=== PATIENT | male | born 1940 | race Caucasian/White ===

== ENCOUNTER 2019-01-15 08:07 | Inpatient (IN) | payer MEDICARE, OTHER ==
[2019-01-15] VITALS (17 sets, daily range): BP systolic 150–209; BP diastolic 76–115; BMI 23.0
[~2019-01-15] VITALS: Ht 180.3 cm; Wt 74.4 kg
[~2019-01-15 08:07] MED LIST: ALTACE5 MG PO; BAYER CHEWABLE81 MG PO; FLOMAX0.4 MG PO; FLUTICASONE PRO16 GM NASAL; GLUCOPHAGE500 MG PO; GLUCOTROL 5 MG T5 MG PO; HEMOCYTE PLUS C1 CAP PO; K-DUR20 MEQ PO; KLONOPIN0.5 MG PO; LASIX20 MG PO; LOPRESSOR25 MG PO; NAPROSYN500 MG PO; PLAVIX75 MG PO; PRESERVISION AR1 CAP PO; ULTRAM50 MG PO
[2019-01-15] MEDS ORDERED: COZAAR100 MG PO (08:15)
[2019-01-15] MEDS ORDERED: ULTRAM50 MG PO (08:16)
[2019-01-15] MEDS ORDERED: METOPROLOL TART25 MG PO (08:17)
[2019-01-15 08:47] LABS: APPEARANCE CLEAR (CLEAR); BILIRUBIN NEGATIVE (NEGATIVE); COLOR YELLOW (YELLOW); GLUCOSE NEGATIVE (NEGATIVE); KETONE SMALL mg/dL (NEGATIVE); NITRITE NEGATIVE (NEGATIVE); PROTEIN NEGATIVE (NEGATIVE); UROBILINOGEN NORMAL (NORMAL)
[2019-01-15 08:52] LABS: BASOPHILS 0.3 % (0-2); EOSINOPHILS 1.6 % (0-7); HEMOGLOBIN 14.4 g/dL (13.5-17.5); IMMATURE GRANULOCYTES 0.1 % (0-5); LYMPHOCYTES 18.8 % (15-50); MCH 31.5 pg (26.0-34.0); MCHC 34.3 g/dL (31.0-37.0); MCV 91.9 fL (80.0-100.0); MEAN PLATELET VOLUME 10.4 fL (7.4-10.4); MONOCYTES 6.4 % (2-11); NEUTROPHILS 72.8 % (40-80); RBC 4.57 10x6/uL (4.20-6.10); WBC 7.7 10x3/uL (4.8-10.8)
[2019-01-15 08:55] LABS: PLATELET COUNT 206 10x3/uL (130-400)
[2019-01-15 08:59] LABS: ALBUMIN 3.7 g/dL (3.4-5.0); ANION GAP 14.9 mmol/L (8-16); BILIRUBIN - TOTAL 0.29 mg/dL (0.2-1.3); CALCIUM 8.7 mg/dL (8.5-10.1); CARBON DIOXIDE 24.5 mmol/L (21.0-32.0); CREATININE - SERUM 1.4 mg/dL (0.6-1.3); POTASSIUM - SERUM 4.4 mmol/L (3.5-5.1); PROTEIN - SERUM 7.1 g/dL (6.4-8.2)
--- NOTE | 2019-01-15 10:34 | NUR ---
PT UP TO BSC. BLACK STOOL WITH BRIGHT RED BLOOD NOTED IN TOILET. PT DID BECOME TACHY WHEN HE GOT UP TO BSC. BP NOW ELEVATED. DR COMBS NOTIFIED. VERBAL ORDER TO REORDER HOME [place].
--- NOTE | 2019-01-15 10:58 | MORECARE ---
CASE MANAGEMENT DISCHARGE SUMMARY PATIENT: FROILAN CRUM UNIT: [id number] ADM DATE: 01/15/19 AGE: 78 : 42 SEX: M ROOM/BED: D.[facility] AUTHOR: ISIDOC PHYSICIAN: REFERRING PHYSICIAN: MILAGRO BELLO MD DATE OF SERVICE: 01/15/19 Discharge Plan Patient Name: FROILAN CRUM Facility: [facility]:[place] : 1940 Planned Disposition: Home Anticipated Discharge Date: 01/17/19 Discharge Date: Expected LOS: 2 Initial Reviewer: [email or web address] Initial Review Date: 01/15/2019 Generated: 01/15/19 11:58 am DCP- Discharge Planning Updated by [email or web address]: Julia Canas on 01/15/19 9:[address] Patient Name: FROILAN CRUM Admission Status: ER Accout number: [id number] Admission Date: 01-15-2019 : 1940 Admission Diagnosis: Attending: MILAGRO BELLO Current LOS: 1 Anticipated DC Date: 01-17-2019 Planned Disposition: Home Primary Insurance: MEDICARE A & B Discharge Planning Comments: CM met with patient to complete initial dc planning assessment. CM educated patient on the CM role and verbal consent given by patient to complete assessment. Patient lives at home with his . He reports he is independent in his ADL's and IADL's. At discharge patient plans to return home and feels this is a safe discharge. CM discussed availability of home health, rehab services, and medical equipment. Patient denied known discharge needs at this time. CM will continue to follow and will assist as needed with dc plans/needs. Wound/Ostomy Nurse: Julia Canas RN, [facility] DCPIA - Discharge Planning Initial Assessment Updated by [email or web address]: Julia Canas on 01/15/19 10:53 am * Is the patient Alert and Oriented? Yes * How many steps to enter\exit or inside your home? None * PCP Dr. Rankin * Pharmacy [facility] the [facility] * Preadmission Environment Home with Family * ADLs Independent * Equipment Glucometer * List name and contact numbers for known caregivers / representatives who currently or will assist patient after discharge: Salma Crum - spouse - [phone] Varun Pierson - son - [phone] * Verbal permission to speak to the caregivers and representatives has been obtained from the patient. Yes * Community resources currently utilized None * Additional services required to return to the preadmission environment? No * Can the patient safely return to the preadmission environment? Yes * Has this patient been hospitalized within the prior 30 days at any hospital? No Patient Name: FROILAN CRUM Page [phone] at 1058 All edits/amendments must be made on the electronic document DICTATION DATE: 01/15/191056 WEED INSPECTOR: RANDA 01/15/191056 RPT#: [id number] DC DATE: STATUS: ADM IN [facility] [address] [place] [address] END OF REPORT
--- NOTE | 2019-01-15 11:23 | NUR ---
PT TO NUCLEAR MED. STATED THEY WOULD TRANSPORT PT TO ICU WHEN DONE WITH SCAN. AAOX4. DENIES PAIN. NAD. BP ELEVATED, HOME BP MEDS GIVEN. ALL OTHER VS STABLE AT THIS TIME.
--- NOTE | 2019-01-15 12:23 | NUR ---
pt arrived to room via stretcher. a&o. able to transfer self from stretcher to bed without difficulty. gait steady. placed on bedside monitoring.
[2019-01-15 13:01] LABS: HEMATOCRIT 42.6 % (42.0-54.0); HEMOGLOBIN 14.8 g/dL (13.5-17.5)
--- NOTE | 2019-01-15 13:10 | NUR ---
AT BEDSIDE AT THIS TIME
--- NOTE | 2019-01-15 14:48 | NUR ---
PT UP TO URINATE. HAD ANOTHER BLOODY BOWEL MOVEMENT. BRIGHT RED BLOOD NOTED IN BOWL.
--- NOTE | 2019-01-15 15:45 | NUR ---
PT UP TO TOILET. MORE BLOOD NOTED IN BOWL FROM BOWEL.
--- NOTE | 2019-01-15 17:17 | NUR ---
PT UP TO TOILET. SMALL BLOODY BOWEL MOVEMENT.
[2019-01-15 18:15] LABS: HEMATOCRIT 36.9 % (42.0-54.0); HEMOGLOBIN 12.9 g/dL (13.5-17.5)
--- NOTE | 2019-01-15 19:28 | NUR ---
REPORT RECEIVED, SHIFT ASSESSMENT COMPLETED PER FLOW SHEET. AAOX4. PPP. LT FOREARM PIV PATENT, NO SIGNS OF INFECTION OR INFILTRATION. DENIES NEEDS. CALL LIGHT WITHIN REACH. SEE FLOW SHEET FOR COMPLETE ASSESSMENT. WILL CONTINUE TO MONITOR.
--- NOTE | 2019-01-15 21:20 | NUR ---
ORDER RECEIVED IN REPORT BY DAY SHIFT RN THAT PATIENT IS ABLE TO TAKE SMALL SIPS OF WATER WITH MEDS PER DR. BETTENCOURT'S ORDERS. SCHEDULED MEDS GIVEN, SMALL AMOUNT OF WATER PROVIDED. DENIES NEEDS. CALL LIGHT WITHIN REACH. WILL CONTINUE TO MONITOR.
--- NOTE | 2019-01-15 23:01 | NUR ---
REASSESSMENT COMPLETED PER FLOW SHEET, SEE FOR DETAILS. NO ACUTE DISTRESS NOTED. DENIES NEEDS. CALL LIGHT WITHIN REACH. WILL CONTINUE TO MONITOR.
[2019-01-15 23:34] LABS: HEMOGLOBIN 12.6 g/dL (13.5-17.5)
[2019-01-16] VITALS (16 sets, daily range): BP systolic 135–166; BP diastolic 69–98; Ht 180.3 cm; Wt 74.4 kg
--- NOTE | 2019-01-16 01:00 | NUR ---
RESTING, NO ACUTE DISTRESS NOTED, DENIES NEEDS. CALL LIGHT WITHIN REACH. WILL CONTINUE TO MONITOR.
--- NOTE | 2019-01-16 02:08 | NUR ---
CALL LIGHT ANSWERED, ASSISSTED PATIENT OOB TO USE BR, SMALL SMEAR OF BLOOD NOTED TO TOILET PAPER. NO BM. ASSISSTED BACK IN BED. DENIES OTHER NEEDS. CALL LIGHT WITHIN REACH. WILL CONTINUE TO MONITOR.
--- NOTE | 2019-01-16 03:22 | NUR ---
REASSESSMENT COMPLETED PER FLOW SHEET, SEE FOR DETAILS. NO ACUTE DISTRESS NOTED. DENIES NEEDS AT THIS TIME. CALL LIGHT WITHIN REACH. WILL CONTINUE TO MONITOR.
--- NOTE | 2019-01-16 05:00 | NUR ---
RESTING, NO ACUTE DISTRESS NOTED. WILL CONTINUE TO MONITOR.
[2019-01-16 05:32] LABS: BASOPHILS 0.4 % (0-2); EOSINOPHILS 1.7 % (0-7); HEMATOCRIT 37.8 % (42.0-54.0); IMMATURE GRANULOCYTES 0.2 % (0-5); LYMPHOCYTES 25.2 % (15-50); MCH 31.2 pg (26.0-34.0); MCHC 34.4 g/dL (31.0-37.0); MCV 90.6 fL (80.0-100.0); MONOCYTES 7.6 % (2-11); NEUTROPHILS 64.9 % (40-80); PLATELET COUNT 193 10x3/uL (130-400); RBC 4.17 10x6/uL (4.20-6.10); RDW 13.3 % (11.5-14.5)
[2019-01-16 05:41] LABS: WBC 5.4 10x3/uL (4.8-10.8)
[2019-01-16 05:57] LABS: ALBUMIN 3.4 g/dL (3.4-5.0); ANION GAP 16.2 mmol/L (8-16); BILIRUBIN - TOTAL 0.38 mg/dL (0.2-1.3); CALCIUM 8.1 mg/dL (8.5-10.1); CARBON DIOXIDE 21.8 mmol/L (21.0-32.0); CREATININE - SERUM 1.1 mg/dL (0.6-1.3); PROTEIN - SERUM 6.5 g/dL (6.4-8.2)
--- NOTE | 2019-01-16 07:00 | NUR ---
REPORT RECEIVED FROM THE OFF GOING RN. SEE ASSESSMENT IN THE PTS FLOW SHEET. VSS. NSR ON THE MONITOR. PT DENIES PAIN. AT THIS TIME. NO BLOODY STOOLS NOTED. LABS REVIEWED. CALL LIGHT IN REACH. WILL CONT POC.
--- NOTE | 2019-01-16 08:00 | NUR ---
DR BETTENCOURT AT THE PTS BEDSIDE. SEE ORDERS. DR BETTENCOURT IS OK TO TRANSFER OUT OF THE UNIT IF DR BELLO OK WITH IT.
--- NOTE | 2019-01-16 09:00 | NUR ---
PT AMBLATES AD SARABJIT WITH A NORMAL AND STEADY GAIT. HYGIENE PRODUCTS PROVIDED FOR THE PT. PT TOLERATED WELL. FULL LIQUID DIET PROVIDED FOR THE PT PER ORDERS.
--- NOTE | 2019-01-16 11:15 | NUR ---
PT INFORMED ME THAT HE HAD A BM. FORMED MAROON BM WITH SCANT. PT DENIES PAIN/NEEDS. WILL CONT POC.
--- NOTE | 2019-01-16 11:43 | NUR ---
DR BELLO IN THE UNIT. OK TO TRANSFER TO THE FLOOR. POSSIBLE DC HOME TOMORROW.
--- NOTE | 2019-01-16 12:30 | NUR ---
MEAL TRAY PROVIDED FOR THE PT. DENIES NEEDS AT THIS TIME. WILL CONT POC.
--- NOTE | 2019-01-16 14:45 | NUR ---
PT REQUESTED THAT HE HAS HIS FLOWMAX RESTARTED. DR BELLO PAGED. OK TO START FLOWMAX
--- NOTE | 2019-01-16 15:00 | NUR ---
WASH CLOTHS AND NEW GOWN PROVIDED FOR THE PT. PT IN THE BATHROOM GIVING HIM SELF A WASH CLOTH BATH. TOLERATING WELL.
--- NOTE | 2019-01-16 17:01 | NUR ---
DINNER TRAY PROIVDED FOR THE PT. PT DENIES NEEDS/WANTS AT THIS TIME. NO S/SX OF DISTRESS/DISCOMFORT NOTED. CALL LIGHT IN REACH. WILL CONT POC.
--- NOTE | 2019-01-16 19:19 | NUR ---
BEDSIDE SHIFT REPORT GIVEN BY DEPARTING RN. PT LAYING IN BED WATCHING TV. AAOX4. PERRLA. DENIES OAIN AT THIS TIME. VOICES NO NEEDS OR CONCERNS. LEFT FA PIV INFUSING MD ORDERED MEDS WITHOUT DIFFICULTY. RRRR. SAFETY MEASURES IN PLACE. CBIR. SEE ASSESSMENT FLOWSHEET FOR FULL DETAILS.
--- NOTE | 2019-01-16 20:40 | NUR ---
HS MEDS GIVEN. SWALLOWED WITHOUT DIFFICULTY.
--- NOTE | 2019-01-16 23:55 | NUR ---
LAYING IN BED ASLEEP SHOWING NO SS OF DISTRESS. VSS. NO CHANGES NOTED IN PT CONDITION.
[2019-01-17 04:00] VITALS: BP 153/85
[2019-01-17 06:35] LABS: BASOPHILS 0.5 % (0-2); HEMATOCRIT 35.6 % (42.0-54.0); HEMOGLOBIN 12.2 g/dL (13.5-17.5); LYMPHOCYTES 26.1 % (15-50); MCHC 34.3 g/dL (31.0-37.0); MCV 90.6 fL (80.0-100.0); MEAN PLATELET VOLUME 9.8 fL (7.4-10.4); MONOCYTES 9.5 % (2-11); NEUTROPHILS 59.9 % (40-80); PLATELET COUNT 178 10x3/uL (130-400); RBC 3.93 10x6/uL (4.20-6.10); RDW 13.2 % (11.5-14.5)
--- NOTE | 2019-01-17 06:54 | NUR ---
PT ARRIVES TO ROOM VIA WHEELCHAIR AND ABULATES WITHOUT DIFFICULTY FROM WHEELCHAIR TO BED. PIV TO LEFT FOREARM INFUSING NS @ 125. NO SIGNS OF SKIN BREAKDOWN NOTED. PT DENIES PRESENCE OF NUMBNESS/TINGLING, PT DENIES PRESENCE OF N/V. PT DENIES PRESENCE OF PAIN. PT IS ON ROOM AIR. BED IS IN THE LOWEST POSITION. CALL LIGHT AND BEDSIDE TABLE ARE WITHIN REACH. WILL NOTIFY SHIFT NURSE OF PT ARRIVAL AND FINDINGS.
[2019-01-17 06:59] LABS: ALBUMIN 3.3 g/dL (3.4-5.0); ANION GAP 13.6 mmol/L (8-16); BILIRUBIN - TOTAL 0.33 mg/dL (0.2-1.3); CARBON DIOXIDE 22.3 mmol/L (21.0-32.0); CREATININE - SERUM 1.2 mg/dL (0.6-1.3); POTASSIUM - SERUM 3.9 mmol/L (3.5-5.1); PROTEIN - SERUM 6.3 g/dL (6.4-8.2)
--- NOTE | 2019-01-17 07:46 | NUR ---
The patient is awake and alert, oriented x3, denies pain. Does say he is hungry. No diet ordered at this time.
--- NOTE | 2019-01-17 07:59 | NUR ---
I have reviewed this patient and I concur with the Shift Assessment completed by the Licensed Practical Nurse today this shift.
--- NOTE | 2019-01-17 09:30 | NUR ---
RECIEVED REPORT FROM LAZARO BURNS RN. PT LYING IN BED AAO X4 TO PERSON, PLACE, TIME AND SITUATION. DENIES NEEDS AT THIS TIME. CL IN REACH.
[2019-01-17] MEDS ORDERED: METOPROLOL TART50 MG PO (11:12)
[2019-01-17] MEDS ORDERED: NORVASC10 MG PO (11:12)
--- NOTE | 2019-01-17 12:44 | MORECARE ---
CASE MANAGEMENT DISCHARGE SUMMARY PATIENT: FROILAN CRUM UNIT: [id number] ADM DATE: 01/15/19 AGE: 78 : 42 SEX: M ROOM/BED: D.2231 AUTHOR: JILLIAN SNOWDEN PHYSICIAN: REFERRING PHYSICIAN: MILAGRO BELLO MD DATE OF SERVICE: 01/17/19 Discharge Plan Patient Name: FROILAN CRUM Facility: [facility]:[place] : 1940 Planned Disposition: Home Anticipated Discharge Date: 01/17/19 Discharge Date: Expected LOS: 2 Initial Reviewer: [email or web address] Initial Review Date: 01/15/2019 Generated: 01/17/19 1:44 pm Comments DCP- Discharge Planning Updated by [email or web address]: Rosmery Lucas on 01/17/19 11:[address] Patient Name: FROILAN CRUM Encounter No: [id number] : 1940 Primary Insurance: MEDICARE A & B Anticipated DC Date: 01-17-2019 Planned Disposition: Home External Planned Provider: : DCP follow-up note: Patient and family in agreement with discharge plan. No changes to plan. States his will be taking him home. Denies needs. No needs identified. Case management will follow and assist as needed. Rosmery Lucas DCP- Discharge Planning Updated by [email or web address]: Julia Canas on 01/15/19 9:[address] Patient Name: FROILAN CRUM Admission Status: ER Accout number: [id number] Admission Date: 01-15-2019 : 1940 Admission Diagnosis: Attending: MILAGRO BELLO Current LOS: 1 Anticipated DC Date: 01-17-2019 Planned Disposition: Home Primary Insurance: MEDICARE A & B Discharge Planning Comments: CM met with patient to complete initial dc planning assessment. CM educated patient on the CM role and verbal consent given by patient to complete assessment. Patient lives at home with his . He reports he is independent in his ADL's and IADL's. At discharge patient plans to return home and feels this is a safe discharge. CM discussed availability of home health, rehab services, and medical equipment. Patient denied known discharge needs at this time. CM will continue to follow and will assist as needed with dc plans/needs. Job Coach/Job Developer: Julia Canas RN, [facility] DCPIA - Discharge Planning Initial Assessment Updated by [email or web address]: Julia Canas on 01/15/19 10:53 am * Is the patient Alert and Oriented? Yes * How many steps to enter\exit or inside your home? None * PCP Dr. Rankin * Pharmacy [facility] the [facility] * Preadmission Environment Home with Family * ADLs Independent * Equipment Glucometer * List name and contact numbers for known caregivers / representatives who currently or will assist patient after discharge: Salma Crum - spouse - [phone] Varun Pierson - son - [phone] * Verbal permission to speak to the caregivers and representatives has been obtained from the patient. Yes * Community resources currently utilized None * Additional services required to return to the preadmission environment? No * Can the patient safely return to the preadmission environment? Yes * Has this patient been hospitalized within the prior 30 days at any hospital? No Last DP export: 01/15/19 9:58 a Patient Name: FROILAN CRUM Page [phone] at 1244 All edits/amendments must be made on the electronic document DICTATION DATE: 01/17/191242 HOTEL OR MOTEL ROOM SERVICE SUPERVISOR: RANDA 01/17/191242 RPT#: [id number] DC DATE: STATUS: ADM IN [facility] [address] [place] [address] END OF REPORT
[2019-01-17 13:23] VITALS: BP 154/86
== END 2019-01-17 15:20 | disposition home or self-care (01) | DRG 811 ==
LOC: D.ER 08:07 → D.CVICU 09:32 → D.EDHOLD 09:32 → D.CVICU 10:14 → D.MS 01-17 06:51
PROVIDERS: Family Medicine; ADMIT Internal Medicine Nephrology; ATTEND Internal Medicine Nephrology
DX: D62 Acute posthemorrhagic anemia (principal); K57.91 Diverticulosis of intestine, part unspecified, without perforation or abscess with bleeding; K92.2 Gastrointestinal hemorrhage, unspecified; N17.9 Acute kidney failure, unspecified; E11.9 Type 2 diabetes mellitus without complications; I10 Essential (primary) hypertension; N40.0 Benign prostatic hyperplasia without lower urinary tract symptoms; K57.90 Diverticulosis of intestine, part unspecified, without perforation or abscess without bleeding; E78.5 Hyperlipidemia, unspecified; I25.10 Atherosclerotic heart disease of native coronary artery without angina pectoris

== ENCOUNTER 2021-01-17 09:52 | Inpatient (IN) | payer MEDICARE, OTHER ==
[~2021-01-17] VITALS: Ht 180.3 cm; Wt 67.6 kg
[~2021-01-17 09:52] MED LIST changes: +COZAAR100 MG PO; -GLUCOTROL 5 MG T5 MG PO; +GLUCOTROL XL 1010 MG PO; +METOPROLOL TART25 MG PO; +METOPROLOL TART50 MG PO; +NORVASC10 MG PO
[2021-01-17 10:23] LABS: BASOPHILS 0.5 % (0-2); EOSINOPHILS 14.5 % (0-7); HEMATOCRIT 39.3 % (42.0-54.0); HEMOGLOBIN 13.2 g/dL (13.5-17.5); IMMATURE GRANULOCYTES 0.3 % (0-5); LYMPHOCYTE ABS# 1.48 10x3/uL (1.32-3.57); LYMPHOCYTES 24.7 % (15-50); MCH 30.6 pg (26.0-34.0); MCHC 33.6 g/dL (31.0-37.0); MCV 91.2 fL (80.0-100.0); MEAN PLATELET VOLUME 9.8 fL (7.4-10.4); MONOCYTES 5.8 % (2-11); NEUTROPHIL ABS# 3.24 10x3/uL (1.78-5.38); NEUTROPHILS 54.2 % (40-80); PLATELET COUNT 225 10x3/uL (130-400); RBC 4.31 10x6/uL (4.20-6.10); RDW 13.2 % (11.5-14.5)
[2021-01-17 10:28] LABS: CALC OSMOLALITY 283 mosm/kg (275-300); CALCIUM 8.8 mg/dL (8.5-10.1); CARBON DIOXIDE 27.5 mmol/L (21.0-32.0); CHLORIDE - SERUM 102 mmol/L (98-107); CREATININE - SERUM 1.4 mg/dL (0.6-1.3); POTASSIUM - SERUM 4.3 mmol/L (3.5-5.1); SODIUM 137 mmol/L (136-145); UREA NITROGEN 23 mg/dL (7-18); eGFR NON AFRICAN AMERICAN 52 mL/min (90-120)
[2021-01-17 10:29] LABS: GLUCOSE 204 mg/dL (74-106)
[2021-01-17 10:32] LABS: APTT 28.3 SECONDS (22.8-39.4); INR 1.07 (0.85-1.17); PROTIME 12.9 SECONDS (11.6-15.0)
[2021-01-17 10:36] LABS: ALBUMIN 3.4 g/dL (3.4-5.0); ALKALINE PHOSPHATASE 96 U/L (30-120); ALT (SGPT) 25 U/L (10-68); AMYLASE - SERUM 42 U/L (25-115); BILIRUBIN - TOTAL 0.31 mg/dL (0.2-1.3); LIPASE 127 U/L (73-393); PROTEIN - SERUM 6.4 g/dL (6.4-8.2)
[2021-01-17 10:37] LABS: TROPONIN-I < 0.017 ng/mL (0.000-0.060)
[2021-01-17] MEDS ORDERED: MIRAPEX0.25 MG PO (11:24)
[2021-01-17] MEDS ORDERED: OMEPRAZOLE20 M1 PO (11:24)
[2021-01-17] MEDS ORDERED: METOPROLOL TART50 MG PO (11:25)
[2021-01-17] MEDS ORDERED: MULTI-DAY VITAM1 TAB PO (11:26)
--- NOTE | 2021-01-17 11:32 | NUR ---
ATTEMPTED TO CALL REPORT, NURSE UNAVAILABLE
[2021-01-17] MEDS ORDERED: FOLBIC RF TABL1 EACH PO (12:22)
[2021-01-17 12:23] VITALS: BP 130/67
--- NOTE | 2021-01-17 12:30 | NUR ---
ALERT AND ORIENTED X4 ABDOMEN SOFT AND NOTENDER ON PALPATION. CAPRE FILL <3 SEC WITH GOOD TURGOR. IVF INFUSING TO RIGHT A/C AT PRESCRIBED RATE. ORIENTED TO ROOM AND INSTUCTED TO USE CALL LIGHT FOR ASSSIT.
[2021-01-17 12:37] VITALS: BP 130/67; BMI 20.8
[2021-01-17 16:00] VITALS: BP 117/47
--- NOTE | 2021-01-17 19:00 | NUR ---
BEDSIDE REPORT RECEIVED AND CARE OF PT ASSUMED. PT LYING IN LOW POWELL'S POSITION WATCHING TV. IV TO RIGHT AC SALINE LOCKED. TELEMETRY IN PLACE AND READING 65 SR AT THIS ASSESSMENT. WILL MONITOR FOR NEEDS.
[2021-01-17 19:44] VITALS: BP 115/52
--- NOTE | 2021-01-17 19:45 | NUR ---
PT HAD LARGE BLOODY STOOL WITH BRIGHT RED AND SOME DARK RED BLOOD CLOTS.
--- NOTE | 2021-01-17 20:00 | NUR ---
GAVE INCENTIVE INSPIROMETER AND INSTRUCTED ON USE. PT DEMONSTRATED CORRECT USE WITH INSPIRED VOLUME GREATER THAN 2000.
--- NOTE | 2021-01-17 20:15 | NUR ---
PLACED SCD'S ON BLE PER ORDER AND INSTRUCTED PT ON USE.
--- NOTE | 2021-01-17 20:43 | NUR ---
HS MEDICATIONS GIVEN. FSBS 162 THIS CHECK...PT DECLINED COVERAGE PER SLIDING SCALE HE STATES HE GETS HYPOGLYCEMIC AT NIGHT AT TIMES. WILL CONTINUE TO MONITOR CLOSELY FOR NEEDS.
--- NOTE | 2021-01-17 22:42 | NUR ---
STARTED IV FLUIDS PER ORDER.
--- NOTE | 2021-01-17 22:44 | NUR ---
PT HAD LARGE LOOSE, BLOODY STOOL WITH BRIGHT RED BLOOD.
--- NOTE | 2021-01-18 00:05 | NUR ---
GAVE SNACK PER PT REQUEST: ORANGE JUICE, FLOYD CRACKERS AND PEANUT BUTTER.
[2021-01-18 04:53] LABS: BASOPHILS 0.3 % (0-2); EOSINOPHILS 6.5 % (0-7); HEMOGLOBIN 11.5 g/dL (13.5-17.5); IMMATURE GRANULOCYTES 0.2 % (0-5); LYMPHOCYTE ABS# 1.21 10x3/uL (1.32-3.57); LYMPHOCYTES 18.7 % (15-50); MCH 30.7 pg (26.0-34.0); MCHC 33.8 g/dL (31.0-37.0); MCV 90.9 fL (80.0-100.0); MEAN PLATELET VOLUME 10.2 fL (7.4-10.4); NEUTROPHIL ABS# 4.56 10x3/uL (1.78-5.38); NEUTROPHILS 70.3 % (40-80); PLATELET COUNT 239 10x3/uL (130-400); RBC 3.74 10x6/uL (4.20-6.10); RDW 13.3 % (11.5-14.5); WBC 6.5 10x3/uL (4.8-10.8)
[2021-01-18 05:20] LABS: ANION GAP 11.5 mmol/L (8-16); BILIRUBIN - TOTAL 0.21 mg/dL (0.2-1.3); CALCIUM 8.4 mg/dL (8.5-10.1); CARBON DIOXIDE 24.7 mmol/L (21.0-32.0); CREATININE - SERUM 1.4 mg/dL (0.6-1.3); MAGNESIUM - SERUM 1.9 mg/dL (1.8-2.4); POTASSIUM - SERUM 4.2 mmol/L (3.5-5.1)
[2021-01-18 08:36] VITALS: BP 172/70
--- NOTE | 2021-01-18 08:45 | NUR ---
PATIENT IN BED WITH IV INTACT. NO COMPLAINTS OR SIGNS OF DISTRESS. CALL LIGHT WITHIN REACH.
[2021-01-18 12:26] VITALS: BP 144/62
[2021-01-18 14:06] VITALS: Ht 180.3 cm; Wt 67.6 kg
[2021-01-18 17:00] VITALS: BP 171/83
--- NOTE | 2021-01-18 18:45 | NUR ---
PATIENT HAD 5 BLOODY BMS TODAY. STATED THEY ARE NOT BAD WHEN HE CAME IN. STATED HE IS FEELING BETTER. IV INTACT. NO COMPLAINTS OR SIGNS OF DISTRESS. CALL LIGHT WITHIN REACH.
--- NOTE | 2021-01-18 19:00 | NUR ---
BEDSIDE REPORT RECEIVED AND CARE OF PT ASSUMED. PT LYING IN LOW POWELL'S POSITION WATCHING TV. IV TO RIGHT AC PATENT WITH NS INFUSING AT 75 ML/HR. TELEMETRY IN PLACE AND READING SR AT THIS ASSESSMENT. FSBS PERFORMED AND READING 339 REQUIRING COVERAGE WITH 8 UNITS OF INSULIN PER SLIDING SCALE.
--- NOTE | 2021-01-18 21:13 | NUR ---
HS MEDICATIONS GIVEN. FSBS 138 THIS CHECK REQUIRING NO COVERAGE PER SLIDING SCALE.
[2021-01-18 21:33] VITALS: BP 188/85
--- NOTE | 2021-01-18 22:30 | NUR ---
PAGEJean-Pierre GRAHAM APN TO ADVISE OF INCREASED BLOODY STOOLS SINCE SHIFT CHANGE. TOLD TO PAGE DR SHINE.
--- NOTE | 2021-01-18 22:40 | NUR ---
PAGED VOICE DUE TO INCREASE OF BLOODY STOOLS....X6 SINCE SHIFT CHANGE. ORDER RECEIVED TO DO STAT H & H AND GIVE 2 UNITS PRBC'S IF HGB BELOW 10. CALLED LAB TO NOTOFY OF NEW ORDER.
--- NOTE | 2021-01-18 22:44 | NUR ---
H/H IS 10.3/30.8 AT THIS CHECK, NOT BELOW NUMBER GIVEN TO INFUSE PRBC'S.
[2021-01-18 22:48] LABS: HEMATOCRIT 30.8 % (42.0-54.0); HEMOGLOBIN 10.3 g/dL (13.5-17.5)
--- NOTE | 2021-01-18 23:00 | NUR ---
FSBS PERFORMED PER PT REQUEST HE THINKS IT IS LOW. 79 AT THIS CHECK. GAVE ORANGE JUICE, FLOYD CRACKERS, AND PEANUT BUTTER FOR SHACK.
[2021-01-19 00:39] VITALS: BP 98/51
[2021-01-19 05:15] VITALS: BP 154/66
[2021-01-19 05:56] LABS: BASOPHILS 0.4 % (0-2); EOSINOPHILS 5.3 % (0-7); HEMATOCRIT 29.8 % (42.0-54.0); HEMOGLOBIN 9.8 g/dL (13.5-17.5); IMMATURE GRANULOCYTES 0.4 % (0-5); LYMPHOCYTE ABS# 1.19 10x3/uL (1.32-3.57); LYMPHOCYTES 23.4 % (15-50); MCHC 32.9 g/dL (31.0-37.0); MCV 91.1 fL (80.0-100.0); MEAN PLATELET VOLUME 10.1 fL (7.4-10.4); MONOCYTES 5.7 % (2-11); NEUTROPHIL ABS# 3.29 10x3/uL (1.78-5.38); NEUTROPHILS 64.8 % (40-80); PLATELET COUNT 224 10x3/uL (130-400); RBC 3.27 10x6/uL (4.20-6.10); RDW 13.5 % (11.5-14.5); WBC 5.1 10x3/uL (4.8-10.8)
[2021-01-19 06:19] LABS: ALBUMIN 2.8 g/dL (3.4-5.0); ANION GAP 11.6 mmol/L (8-16); BILIRUBIN - TOTAL 0.2 mg/dL (0.2-1.3); CALCIUM 7.9 mg/dL (8.5-10.1); CARBON DIOXIDE 22.6 mmol/L (21.0-32.0); CREATININE - SERUM 1.3 mg/dL (0.6-1.3); MAGNESIUM - SERUM 1.9 mg/dL (1.8-2.4); POTASSIUM - SERUM 4.2 mmol/L (3.5-5.1); PROTEIN - SERUM 5.5 g/dL (6.4-8.2)
--- NOTE | 2021-01-19 06:26 | NUR ---
PT JUST HAD BRIGHT RED BLOODY STOOL....FIRST SINCE BEFORE MIDNIGHT. HE STATES HE IS FEELING BETTER THIS AM. H/H 9.8 / 29.8 WITH AM LABS.
[2021-01-19 07:43] VITALS: BP 179/77
--- NOTE | 2021-01-19 08:45 | NUR ---
PATIENT IN BED WITH IV INTACT. NO COMPLAINTS OR SIGNS OF DISTRESS. CALL LIGHT WITHIN REACH.
--- NOTE | 2021-01-19 09:00 | NUR ---
PATIENT STATED HE HAS HAD ABOUT 3 BLOODY STOOLS AND NEEDS TOILET FLUSHED AND TOILET PAPER. STOOL IN TOILET BRIGHT RED AND BLOODY. PATIENT STATED THEY LOOK BETTER THAN WHEN HE FIRST CAME IN. WILL CONTINUE TO MONITOR.
--- NOTE | 2021-01-19 12:00 | NUR ---
PATIENT IN BED WITH IV INTACT. NO COMPLAINTS OR SIGNS OF DISTRESS. NO MORE BLOODY STOOLS AT THIS TIME. STATED HE HASNT HAD ANY STOOLS SINCE THIS AM. CALL LIGHT WITHIN REACH.
[2021-01-19 12:35] VITALS: BP 150/74
[2021-01-19 15:00] VITALS: BP 173/80
--- NOTE | 2021-01-19 19:00 | NUR ---
PATIENT HAD BLOODY STOOL AT THIS TIME WITH BRIGHT RED BLOOD AND A FEW CLOTS. TOOK PATIENTS BS PER REQUEST. WAS 98 AFTER 12 UNITS EARLIER. PATIENT BACK ON CLEAR LIQUIDS. SUGAR IS NOW 365. NIGHT NURSE EXPLAINED SHE WOULD RETAKE IT IN AND HOUR AND TREAT IT. VERBALIZED UNDERSTANDING. IV INTACT. CALL LIGHT WITHIN REACH.
--- NOTE | 2021-01-19 20:30 | NUR ---
FSBS 308, REFUSED THE 12 UNITS ORDERED STATING IT WILL CAUSE HIS BS TO DROP TOO QUICKLY. AGREED TO TAKE 8 UNITS. DENIES OTHER NEEDS AT THIS TIME. CL IN REACH
[2021-01-19 21:11] VITALS: BP 162/78
--- NOTE | 2021-01-20 00:15 | NUR ---
FSBS 87, GAVE PT CUP OF JUICE TO DRINK IF HE FEELS LIKE SUGAR IS GETTING TOO LOW AND TO LET THIS NURSE KNOW. PT HAS HAD 2 BRIGHT RED BLOODY STOOLS
[2021-01-20 04:37] VITALS: BP 152/82
[2021-01-20 05:20] LABS: BASOPHILS 0.7 % (0-2); EOSINOPHILS 8.8 % (0-7); HEMATOCRIT 26.7 % (42.0-54.0); HEMOGLOBIN 8.9 g/dL (13.5-17.5); IMMATURE GRANULOCYTES 0.5 % (0-5); LYMPHOCYTE ABS# 1.38 10x3/uL (1.32-3.57); LYMPHOCYTES 31.2 % (15-50); MCH 30.5 pg (26.0-34.0); MCHC 33.3 g/dL (31.0-37.0); MCV 91.4 fL (80.0-100.0); MEAN PLATELET VOLUME 9.5 fL (7.4-10.4); MONOCYTES 8.6 % (2-11); NEUTROPHIL ABS# 2.23 10x3/uL (1.78-5.38); NEUTROPHILS 50.2 % (40-80); PLATELET COUNT 223 10x3/uL (130-400); RBC 2.92 10x6/uL (4.20-6.10); RDW 13.5 % (11.5-14.5); WBC 4.4 10x3/uL (4.8-10.8)
[2021-01-20 05:51] LABS: ALBUMIN 2.9 g/dL (3.4-5.0); ANION GAP 10.4 mmol/L (8-16); BILIRUBIN - TOTAL 0.27 mg/dL (0.2-1.3); CALCIUM 8.2 mg/dL (8.5-10.1); CARBON DIOXIDE 24.6 mmol/L (21.0-32.0); CREATININE - SERUM 1.3 mg/dL (0.6-1.3); MAGNESIUM - SERUM 1.9 mg/dL (1.8-2.4); PROTEIN - SERUM 5.6 g/dL (6.4-8.2)
--- NOTE | 2021-01-20 08:00 | NUR ---
ASSESSMENT PER FLOW SHEET. PATIENT IS WITHOUT DISTRESS. MONITOR FOR NEEDS.
[2021-01-20 08:17] VITALS: BP 166/77
--- NOTE | 2021-01-20 10:00 | NUR ---
CALLED TO ROOM ,PATIENT PULLED IV AND IT IS LEAKING. IV DCD BY NURSING SUDNT WITH CATH TIP INTACT. IV ATTEMPTED BY STUDENT AND INSTRUCTER WITHOUT SUCCESS.WILL ATTEMT IN A WHILE PER PATIENT REQUEST
[2021-01-20 12:12] VITALS: BP 141/68
--- NOTE | 2021-01-20 15:55 | NUR ---
FAMILY TO VISIT. PATIENT IS WITHOUT DISTRESS. NO BLOODY STOOLS DURING TODAY,EXCEPT STOOL AT 0400 THIS AM.
[2021-01-20 17:30] VITALS: BP 164/76
--- NOTE | 2021-01-20 20:00 | NUR ---
PT SITTING UP IN BED WITHOUT DISTRESS, AOX4. DENIES NEEDS AT THIS TIME. STATES NO BLOODY BMS TODAY SINCE 4AM. CL IN REACH
[2021-01-21] VITALS: BP 152/74
[2021-01-21 04:00] VITALS: BP 157/73
[2021-01-21 06:29] LABS: BASOPHILS 0.5 % (0-2); EOSINOPHILS 8.7 % (0-7); HEMATOCRIT 25.6 % (42.0-54.0); HEMOGLOBIN 8.5 g/dL (13.5-17.5); IMMATURE GRANULOCYTES 0.5 % (0-5); LYMPHOCYTE ABS# 1.27 10x3/uL (1.32-3.57); LYMPHOCYTES 30.8 % (15-50); MCH 30.2 pg (26.0-34.0); MCHC 33.2 g/dL (31.0-37.0); MCV 91.1 fL (80.0-100.0); MEAN PLATELET VOLUME 9.6 fL (7.4-10.4); MONOCYTES 7.5 % (2-11); NEUTROPHIL ABS# 2.14 10x3/uL (1.78-5.38); PLATELET COUNT 224 10x3/uL (130-400); RBC 2.81 10x6/uL (4.20-6.10); RDW 13.6 % (11.5-14.5); WBC 4.1 10x3/uL (4.8-10.8)
[2021-01-21 07:05] LABS: ALBUMIN 2.9 g/dL (3.4-5.0); BILIRUBIN - TOTAL 0.27 mg/dL (0.2-1.3); CALCIUM 8.1 mg/dL (8.5-10.1); CARBON DIOXIDE 23.9 mmol/L (21.0-32.0); CREATININE - SERUM 1.2 mg/dL (0.6-1.3); MAGNESIUM - SERUM 1.8 mg/dL (1.8-2.4); POTASSIUM - SERUM 3.9 mmol/L (3.5-5.1); PROTEIN - SERUM 5.4 g/dL (6.4-8.2)
--- NOTE | 2021-01-21 08:00 | NUR ---
ASSESSMENT PER FLOW SHEET. PATIENT IS WITHOUT DISTRESS. REMAINS WITHOUT STOOLS.MONITOR FOR NEEDS
[2021-01-21 08:16] VITALS: BP 153/83
--- NOTE | 2021-01-21 10:04 | NUR ---
CALL TO [phone]. INFORMED HER PATIENT WILL DCD HOME TODAY. SHE WILL CALL WHEN SHE GETS HERE AT HOSPITAL AND WE CAN BRING PATIENT OUT FOR TRANSPORT HOME.
--- NOTE | 2021-01-21 10:05 | MORECARE ---
CASE MANAGEMENT DISCHARGE SUMMARY PATIENT: FROILAN GONZALEZ UNIT: [id number] ADM DATE: 01/17/21 AGE: 80 : 42 SEX: M ROOM/BED: D.2220 AUTHOR: ISI,DOC PHYSICIAN: REFERRING PHYSICIAN: BERNADINE FAM MD DATE OF SERVICE: 01/21/21 Case Management Discharge Planning Summary COMMENTS ENTERED DATE: 01/21/21 10:04 CT COMMENT TYPE: Discharge Planning REVIEWER: Kimberly Smith CM met with patient to complete initial dc planning assessment. CM educated patient on the CM role and verbal consent given by patient to complete assessment. Patient lives at home with his where he states he is independent with his care. At discharge patient plans to return home and feels this is a safe discharge. CM discussed availability of home health, rehab services, and medical equipment. His will be his new autos delivery driver home today. IMM served and explained. Patient denied known discharge needs at this time. CM will continue to follow and will assist as needed with dc plans/needs. DCP REVIEW SUMMARY ANTICIPATED D/C DATE: EXPECTED LOS : CASE STATUS: DCP Initiated INITIAL REVIEW: 01/19/2021 INITIAL REVIEWER: Kimberly Smith FINAL DISCHARGE DISPOSITION: 01 : Home or Self Care (Routine Discharge) FINAL REVIEWER: FINAL REVIEW DATE: DCP Focus Questions & Answers DCP REV -DCP Review Added on: 01/21/21 9:58 am QUESTION: ANSWER DCP Screen High Risk Factors: : None Walking limitation: Patient stated self rated walking limitation present? : No Age: : 66 - 80 Prior living environment: : Lives with others Disability ranking: : Grade 1: No significant disability DCP Evaluation Patient's ability to cope with chronic illness : d. No chronic illness Mental health screen: : No mental health history Would patient like to participate in any Care Coordination programs (if applicable): : Not applicable Physical Status: : Independent with ADL's Baseline cognitive status: : *Oriented to person, place, situation, time and present Baseline cognitive status: : Alert Living Arrangements: : Home with Spouse/Significant Other Pharmacy name(s): : [facility] Does Patient have transportation to get home and to follow-up medical appointments when discharged from the hospital? : Yes Does the patient have electricity at home? : Yes Does the patient have running water in their house? : Yes Equipment in use: : None Resources / Services in place: : None Patient's current cognitive status: : *Oriented to person, place, situation, time and present Functional screen assessment: : No issues identified Patient with capacity for self-care or can be cared for in same environment as prior to hospitalization? : Yes Does the patient have the ability to pay for or attain post discharge needs / services? : Yes Is there a likelihood that the patient will require additional services to return to the preadmission environment? : No Results of this evaluation have been discussed with: : Patient Equipment needed for post hospitalization: : None Physical environment modification needed / anticipated for discharge: : No Planned post hospital services available for patient? : Yes Other Care Coordination programs/comments: : WILL NEED A COLONOSCOPY ( [facility]ISE WANTED TO DO ONW THIS [facility]) DCP Re-evaluation Would patient like to participate in any Care Coordination programs (if applicable): : Not applicable PATIENT: FROILAN GONZALEZ ENCOUNTER: [id number] MEDICAL RECORD#: [id number] ADMISSION DATE: 01/17/2021 DISCHARGE DATE: ATTENDING MD: BERNADINE CHAMBERS : AGE: 80 MARITAL STATUS: M DC PLAN ID: [id number] FACILITY: [facility] PRINTED ON: 01/21/21 10:05 CT All edits/amendments must be made on the electronic document DICTATION DATE: 01/21/21 100 PROBATE CLERK: RANDA 01/21/21 100 RPT#: [id number] DC DATE: STATUS: ADM IN [facility] [address] [place] [address] END OF REPORT
--- NOTE | 2021-01-21 10:45 | NUR ---
DISCHARGE INSTRUCTIONS,STATES UNDERSTANDING. IV DCD WITH CATH TIP INTACT.LEFT UNIT VIA WHEELCHAIR FOR TRANSPORT HOME.
--- NOTE | 2021-01-21 12:02 | MORECARE ---
CASE MANAGEMENT DISCHARGE SUMMARY PATIENT: FROILAN GONZALEZ UNIT: [id number] ADM DATE: 01/17/21 AGE: 80 : 42 SEX: M ROOM/BED: D.2220 AUTHOR: ISI,DOC PHYSICIAN: REFERRING PHYSICIAN: BERNADINE FAM MD DATE OF SERVICE: 01/21/21 Case Management Discharge Planning Summary COMMENTS ENTERED DATE: 01/21/21 10:04 CT COMMENT TYPE: Discharge Planning REVIEWER: Kimberly Smith CM met with patient to complete initial dc planning assessment. CM educated patient on the CM role and verbal consent given by patient to complete assessment. Patient lives at home with his where he states he is independent with his care. At discharge patient plans to return home and feels this is a safe discharge. CM discussed availability of home health, rehab services, and medical equipment. 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 IMM served and explained. Patient denied known discharge needs at this time. CM will continue to follow and will assist as needed with dc plans/needs. DCP REVIEW SUMMARY ANTICIPATED D/C DATE: EXPECTED LOS : CASE STATUS: DCP Initiated INITIAL REVIEW: 01/19/2021 INITIAL REVIEWER: Kimberly Smith FINAL DISCHARGE DISPOSITION: 01 : Home or Self Care (Routine Discharge) FINAL REVIEWER: FINAL REVIEW DATE: DCP Focus Questions & Answers DCP REV -DCP Review Added on: 01/21/21 9:58 am QUESTION: ANSWER DCP Screen High Risk Factors: : None Walking limitation: Patient stated self rated walking limitation present? : No Age: : 66 - 80 Prior living environment: : Lives with others Disability ranking: : Grade 1: No significant disability DCP Evaluation Patient's ability to cope with chronic illness : d. No chronic illness Mental health screen: : No mental health history Would patient like to participate in any Care Coordination programs (if applicable): : Not applicable Physical Status: : Independent with ADL's Baseline cognitive status: : *Oriented to person, place, situation, time and present Baseline cognitive status: : Alert Living Arrangements: : Home with Spouse/Significant Other Pharmacy name(s): : [facility] Does Patient have transportation to get home and to follow-up medical appointments when discharged from the hospital? : Yes Does the patient have electricity at home? : Yes Does the patient have running water in their house? : Yes Equipment in use: : None Resources / Services in place: : None Patient's current cognitive status: : *Oriented to person, place, situation, time and present Functional screen assessment: : No issues identified Patient with capacity for self-care or can be cared for in same environment as prior to hospitalization? : Yes Does the patient have the ability to pay for or attain post discharge needs / services? : Yes Is there a likelihood that the patient will require additional services to return to the preadmission environment? : No Results of this evaluation have been discussed with: : Patient Equipment needed for post hospitalization: : None Physical environment modification needed / anticipated for discharge: : No Planned post hospital services available for patient? : Yes Other Care Coordination programs/comments: : WILL NEED A COLONOSCOPY ( [facility] WANTED TO DO ONW THIS [facility]) DCP Re-evaluation Would patient like to participate in any Care Coordination programs (if applicable): : Not applicable PATIENT: FROILAN GONZALEZ ENCOUNTER: [id number] MEDICAL RECORD#: [id number] ADMISSION DATE: 01/17/2021 DISCHARGE DATE: 01/21/2021 ATTENDING MD: BERNADINE CHAMBERS : AGE: 80 MARITAL STATUS: M DC PLAN ID: [id number] FACILITY: [facility] PRINTED ON: 01/21/21 12:02 CT All edits/amendments must be made on the electronic document DICTATION DATE: 01/21/211201 RECOVERER: RANDA 01/21/211201 RPT#: [id number] DC DATE:01/21/21 STATUS: DIS IN [facility] [address] [place] [address] END OF REPORT
--- NOTE | 2021-01-22 08:30 | MORECARE ---
CASE MANAGEMENT DISCHARGE SUMMARY PATIENT: FROILAN GONZALEZ UNIT: [id number] ADM DATE: 01/17/21 AGE: 80 : 42 SEX: M ROOM/BED: D.2220 AUTHOR: ISI,DOC PHYSICIAN: REFERRING PHYSICIAN: BERNADINE FAM MD DATE OF SERVICE: 01/22/21 Case Management Discharge Planning Summary COMMENTS ENTERED DATE: 01/21/21 10:04 CT COMMENT TYPE: Discharge Planning REVIEWER: Kimberly Smith CM met with patient to complete initial dc planning assessment. CM educated patient on the CM role and verbal consent given by patient to complete assessment. Patient lives at home with his where he states he is independent with his care. At discharge patient plans to return home and feels this is a safe discharge. CM discussed availability of home health, rehab services, and medical equipment. 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 IMM served and explained. Patient denied known discharge needs at this time. CM will continue to follow and will assist as needed with dc plans/needs. DCP REVIEW SUMMARY ANTICIPATED D/C DATE: EXPECTED LOS : CASE STATUS: DCP Initiated INITIAL REVIEW: 01/19/2021 INITIAL REVIEWER: Kimberly Smith FINAL DISCHARGE DISPOSITION: 01 : Home or Self Care (Routine Discharge) FINAL REVIEWER: FINAL REVIEW DATE: DCP Focus Questions & Answers DCP REV -DCP Review Added on: 01/21/21 9:58 am QUESTION: ANSWER DCP Screen High Risk Factors: : None Walking limitation: Patient stated self rated walking limitation present? : No Age: : 66 - 80 Prior living environment: : Lives with others Disability ranking: : Grade 1: No significant disability DCP Evaluation Patient's ability to cope with chronic illness : d. No chronic illness Mental health screen: : No mental health history Would patient like to participate in any Care Coordination programs (if applicable): : Not applicable Physical Status: : Independent with ADL's Baseline cognitive status: : *Oriented to person, place, situation, time and present Baseline cognitive status: : Alert Living Arrangements: : Home with Spouse/Significant Other Pharmacy name(s): : [facility] Does Patient have transportation to get home and to follow-up medical appointments when discharged from the hospital? : Yes Does the patient have electricity at home? : Yes Does the patient have running water in their house? : Yes Equipment in use: : None Resources / Services in place: : None Patient's current cognitive status: : *Oriented to person, place, situation, time and present Functional screen assessment: : No issues identified Patient with capacity for self-care or can be cared for in same environment as prior to hospitalization? : Yes Does the patient have the ability to pay for or attain post discharge needs / services? : Yes Is there a likelihood that the patient will require additional services to return to the preadmission environment? : No Results of this evaluation have been discussed with: : Patient Equipment needed for post hospitalization: : None Physical environment modification needed / anticipated for discharge: : No Planned post hospital services available for patient? : Yes Other Care Coordination programs/comments: : WILL NEED A COLONOSCOPY ( [facility] WANTED TO DO ONW THIS [facility]) DCP Re-evaluation Would patient like to participate in any Care Coordination programs (if applicable): : Not applicable PATIENT: FROILAN GONZALEZ ENCOUNTER: [id number] MEDICAL RECORD#: [id number] ADMISSION DATE: 01/17/2021 DISCHARGE DATE: 01/21/2021 ATTENDING MD: BERNADINE CHAMBERS : AGE: 80 MARITAL STATUS: M DC PLAN ID: [id number] FACILITY: [facility] PRINTED ON: 01/22/21 8:29 CT All edits/amendments must be made on the electronic document DICTATION DATE: 01/22/21828 WEB APPLICATION DEV SPECIALIST: RANDA 01/22/21828 RPT#: [id number] DC DATE:01/21/21 STATUS: DIS IN [facility] [id number] [place] [address] END OF REPORT
== END 2021-01-21 10:50 | disposition home or self-care (01) | DRG 378 ==
LOC: D.ER 09:52 → D.MS 10:39
PROVIDERS: Family Medicine; Internal Medicine Gastroenterology; ADMIT Family Medicine Adult Medicine; ATTEND Family Medicine Adult Medicine
DX: K57.91 Diverticulosis of intestine, part unspecified, without perforation or abscess with bleeding (principal); N17.9 Acute kidney failure, unspecified; E11.40 Type 2 diabetes mellitus with diabetic neuropathy, unspecified; E11.65 Type 2 diabetes mellitus with hyperglycemia; E11.22 Type 2 diabetes mellitus with diabetic chronic kidney disease; I12.9 Hypertensive chronic kidney disease with stage 1 through stage 4 chronic kidney disease, or unspecified chronic kidney disease; N18.9 Chronic kidney disease, unspecified; I25.10 Atherosclerotic heart disease of native coronary artery without angina pectoris; G25.81 Restless legs syndrome; N40.0 Benign prostatic hyperplasia without lower urinary tract symptoms; D63.1 Anemia in chronic kidney disease; E78.5 Hyperlipidemia, unspecified

== ENCOUNTER 2021-01-29 09:49 | Outpatient (CLI) | payer MEDICARE, OTHER ==
[~2021-01-29] VITALS: Ht 180.3 cm; Wt 74.1 kg
[~2021-01-29 09:49] MED LIST changes: +FOLBIC RF TABL1 EACH PO; +MIRAPEX0.25 MG PO; +MULTI-DAY VITAM1 TAB PO; +OMEPRAZOLE20 M1 PO
[2021-01-29 11:22] VITALS: Ht 180.3 cm; Wt 74.1 kg
--- NOTE | 2021-01-29 13:17 | NUR ---
1306 UNIT OF PRBC INFUSION COMPLETED AT 1234. NO SIGNS OR SYMPTOMS OF REACTION NOTED 30 MINUTES POST TRANSFUSION. PT DENIES CP,SOB,ITCHING OR RASH. PT HAS POST TRANSFUSION INSTRUCTIONS IN DISCHARGE PACKET AND DISCHARGE INSTRUCTIONS WERE REVIEWED WITH PT. IV DC'D AT 1245. CATHETER TIP INTACT. NO BLEEDING AT SITE. COBAN DRESSING APPLIED.
== END 2021-01-29 13:08 | disposition home or self-care (01) ==
LOC: D.OPS 09:49
PROVIDERS: ATTEND Family Medicine
DX: D64.9 Anemia, unspecified (principal)

== ENCOUNTER → 2021-04-06 07:37 | Outpatient (CLI) | payer MEDICARE, OTHER ==
[2021-01-29 11:22] VITALS: BMI 22.7
--- NOTE | ~2021-04-06 | EC ---
PATIENT:FROILAN GONZALEZ DATE OF SERVICE: 04/06/21 SEX: M MEDICAL RECORD: [id number] DATE OF : 42 [facility] AGE OF PATIENT: 81 ADMISSION DATE: 04/06/21 REFERRING PHYSICIAN: INTERPRETING PHYSICIAN: BESS BERRY MD ECHOCARDIOGRAM REPORT ECHO CHARGES 4 ECHO COMPLETE Date: 04/06/21 CLINICAL DIAGNOSIS: CAD/CABG ASSESS EF/ MITRAL/TRICUPSPID REGURG ECHOCARDIOGRAPHIC MEASUREMENTS (adult normal given) AC root (d.<3.7cm) 3.3 cm LV Septum d (<1.2 cm> 1.4 cm Valve Excursion 1.4 cm LV Septum (systole) 1.5 cm Left Atria (s.<4.0cm> 3.7 cm LVPW d(<1.2cm) 1.4 cm RV (d.<2.3cm) 2.9 cm LVPW (sytole) 1.6 cm LV diastole(<5.6CM) 5.4 cm MV E-F(>70mm/sec) cm LV systole 4.4 cm LVOT Diameter 1.8 cm MV exc.(>10mm) 1.0 cm Est.ejection fraction (50-75%) % DOPPLER: LVIT cm/sec A 97.0 cm/sec E 89.0 cm/sec LA cm/sec RVSP 38 mmHg LVOT 84 cm/sec AOP1/2T m/s Asc. Ao 140 cm/sec RVOT 59 cm/sec RA cm/sec PA 113 cm/sec AV Gradient Peak 7.85 mmHg AV Mean 3.78 mmHg AV Area 1.7 cm MV Gradient Peak 4.57 mmHg MV Mean 1.70 mmHg MV Area cm COMMENTS: Long Wall Shear Operator: 2 DAVID FOSTER Operations Management Professionals: 3 Dr. Mays TAPE# PACS Pericardial Effusion N DATE OF SERVICE: Adequate 2D, color flow imaging, spectral Doppler, and M-Mode. LVH is present. LV internal dimensions are normal. Wall motion normal. EF greater than or equal to 55%. Aortic valve is sclerotic. No evidence of stenosis by Doppler interrogation. Left atrium is normal at 3.7 cm. Mitral valve shows no prolapse. Mild MR. Right-sided chambers are grossly normal. Mild TR. ECHOCARDIOGRAM REPORT [id number] FROILAN GONZALEZ TRANSINT:[id number] Voice Confirmation ID: [id number] DOCUMENT ID: [id number] BESS BERRY MD CC: [id number] DICTATION DATE: 04/07/21 165 POSTING CLERK: 04/08/21 0030 DEP CLI 04/06/21 [place] [id number]
== END | disposition home or self-care (01) ==
LOC: D.HCCECHO 03-30 10:30
PROVIDERS: ATTEND Internal Medicine Interventional Cardiology
DX: I25.10 Atherosclerotic heart disease of native coronary artery without angina pectoris (principal)